=== PATIENT | female | born 1980 | race Caucasian/White ===

== ENCOUNTER 2018-03-22 08:10 | Emergency (ER) | payer OTHER ==
[~2018-03-22] VITALS: Ht 157.5 cm; Wt 114.0 kg
[2018-03-22 08:13] VITALS: TEMP 36.7; Ht 157.5 cm; Wt 114.0 kg
[2018-03-22] MEDS ORDERED: TRAM-10 PO (08:25)
[2018-03-22] MEDS ORDERED: HYDROCODONE/ACETAMIN 5/325MG TAB PO ONE (09:00)
[2018-03-22] MEDS ORDERED: HYDR-5688 PO (09:02)
[2018-03-22] MEDS ORDERED: PRED20TA PO (09:02)
[2018-03-22 09:14] VITALS: BP 136/90; PULSE 75; O2SAT 98
--- NOTE | 2018-03-22 17:07 | EMERGENCY ROOM VISIT NOTE ---
History First contact with patient: 08:20 Chief Complaint: SHOULDER PAIN Stated Complaint: LEFT SHOULDER PAIN AND SWELLING History of Present Illness The patient is a 37 year old white [place] female who presents to the Emergency Room with complaints of left shoulder pain that has been ongoing for almost a week. Patient denies any specific trauma. She does care for her 3-year-old cerebral palsy child. She states the child weighs about 30 pounds. She does carry the child a lot. She notes left shoulder pain that has been getting worse. She was seen by her chiropractor and was told that her shoulder was " out of place." She states it was adjusted and "put back in." The pain recurred. She was seen again and had shoulder massage. She states it helped for a few hours but the pain returned. She was seen at [facility] last night and was told she needed an MRI. They were unable to perform it last night. She reports here to obtain an MRI. Pain radiates from the elbow to the neck. Worst pain is at the shoulder. She notes pain both anterior and posterior. She has lost motion of the shoulder and elbow secondary to the pain. Denies any numbness or tingling. Right-hand dominant. Her accompanies her today. She has tried Tylenol and ibuprofen without improvement. She was prescribed Ultram last night but states it did not help the pain. She did get an injection of an unknown medication last night that did help for a few hours. No prior history of shoulder injury. She does have a sling but states it does not help. Review of Systems REVIEW OF SYSTEM: HEENT: No dizziness, visual problems, hearing loss, or tinnitus. There is no difficulty swallowing and no oral lesions are present. LYMPH: No adenopathy. PULMONARY: No cough, shortness of breath, sputum production or hemoptysis. CARDIOVASCULAR: No chest pain, palpitations, shortness of breath or peripheral edema. GASTROINTESTINAL: No diarrhea, constipation, nausea, vomiting, or abdominal pain. GENITOURINARY: No dysuria, frequency, urgency or nocturia. NEUROLOGIC: No weakness, muscle tenderness, epilepsy or history of neurological problems. MUSCULOSKELETAL: No history of joint tenderness/swelling. No history of arthritis or arthralgias. SKIN: No rashes or lesions. PSYCHIATRIC: No history of depression or mental illness. ENDOCRINE: No history of diabetes, thyroid disorders, or abnormal hair growth. Past Medical/Surgical History Previous surgeries: None. Medical history: Unremarkable. Family History Her child has cerebral palsy. Social History Smoking Status: Never Smoker Smokeless Tobacco Use: No Alcohol Use: none Drug Use: none Marital Status: Housing Status: lives with family Occupation Status: employed Current/Historical Medications Scheduled Prednisone (Prednisone), 0 PO DAILY Scheduled PRN Hydrocodone/Acetaminophen 5MG/325MG (Horatio 5MG/325MG), 1 TABLET PO Q6 PRN for Pain Tramadol (Ultram), 50 MG PO Q8H PRN for Pain Allergies Coded Allergies: No Known Allergies (Unverified , 03/22/18) Physical Exam Vital Signs Date Time Temp Pulse Resp B/P (MAP) Pulse Ox O2 Delivery O2 Flow Rate FiO2 03/22/18 09:14 75 18 136/90 98 Room Air 03/22/18 08:13 36.7 74 16 160/96 97 Room Air Physical Exam General: Well-developed, well-nourished, young white female, who looks older than her stated age. Sitting on a chair. Obvious discomfort. No acute distress. Alert and oriented. Skin: Warm and dry with good turgor. No rashes or lesions. No ecchymosis or erythema. The patient is not diaphoretic. No abrasions. Musculoskeletal: Left shoulder evaluation reveals no obvious asymmetry or deformity. There is no fullness in the anterior chest to suggest dislocation. She has focal discomfort with palpation over the proximal biceps tendon, subacromial space, and posterior rotator cuff musculature. No pain with palpation over the wrist, forearm, elbow, bicep muscle belly, or tricep muscle belly. Mild discomfort with palpation over her trapezius. No pain over the cervical spine. Intact motor function to the fingers and wrist. She does have full elbow extension as well as flexion to about 110. Passively I can get her to around 120. Very limited shoulder motion secondary to pain. Pendulum exercises do not improve her motion much. Internal rotation with her arm across her abdomen. External rotation just to neutral. Very limited forward flexion and extension secondary to shoulder pain. Good range of motion of her neck. Neurologic: Gross sensation is intact across all aspects of the left arm by soft touch. Peripheral pulses are 2+. Sensory and motor function of the radial , median, and ulnar nerves are clearly intact. Peripheral pulses are 2+. Medical Decision & Procedures Medications Administered Medications (Trade) Dose Ordered Sig/Huber Route Start Time Stop Time Status Last Admin Dose Admin Prednisone (PredniSONE TAB) 60 mg NOW STAT PO 03/22/18 08:54 03/22/18 08:56 DC 03/22/18 09:12 60 MG Acetaminophen/ Hydrocodone Bitart (Horatio 5/325 Tab) 1 tab ONE ONCE PO 03/22/18 09:00 03/22/18 09:01 DC 03/22/18 09:13 1 TAB Prednisone 60 mg p.o., Horatio 5 mg p.o. ED Course Patient and her were educated regarding today's findings. Conservative care measures were discussed. She already had x-rays at [facility] last night. Unfortunately she did not bring them along with her. They are reportedly normal. I did spend considerable time with him explaining shoulder anatomy and what was causing her pain. Possibility of rotator cuff injury and biceps tendon injury were discussed at length. They are here for an MRI. They will be paying out of pocket. Because of the request to keep costs down, I did provide him with an outpatient prescription for MRI arthrogram of her shoulder. She will likely need physical therapy. She may require surgical intervention if a tear of the biceps or rotator cuff is noted. I did request that she avoid seeing the chiropractor for her shoulder until imaging is completed. The OTC medications and tramadol are not working. Prescription was provided for a small amount of Horatio 5 mg to be used every 6 hours as needed for severe pain. Sedation, fall risk, and constipation risks were discussed. She was also given a dose of 60 mg of prednisone. Additional prescription for 60 mg 1 day, 40 mg 2 days, and 20 mg 2 days was provided. Continue the pendulum exercises for range of motion. Follow-up with her PCP. She was shown how to use her sling and should use this for support. Continue to ice the shoulder frequently. Sleep in an upright position if that is more comfortable. Avoid any heavy lifting, including her child. Medical Decision Possibility of cervical radiculopathy, rotator cuff strain, rotator cuff tear, biceps tendon tear, labral tear, shoulder impingement, shoulder dislocation, fracture, and pectoral strain were considered among others. [place] Drug Monitoring Program Search Results: no issues identified Impression Primary Impression: Left shoulder pain Departure Information Dispostion Home / Self-Care Condition GOOD Prescriptions Hydrocodone/Acetaminophen 5MG/325MG (Horatio 5MG/325MG) Tab 1 TABLET PO Q6 Y for Pain, #12 TAB For Initial Treatment Prov: Bhupendra Becker,P.A. 03/22/18 Prednisone (Prednisone) 20 Mg Tab 0 PO DAILY, #9 TAB 3 DAILY FOR 1 DAYS, THEN 2 DAILY FOR 2 DAYS, THEN 1 DAILY FOR 2 DAYS. Prov: Bhupendra Becker,P.A. 03/22/18 Forms HOME CARE DOCUMENTATION FORM, SPECIAL NARCOTICS INSTRUCTIONS, IMPORTANT VISIT INFORMATION Patient Instructions My [facility] Additional Instructions Prednisone daily-take 3 tablets on Friday, 2 tablets on Friday and Friday, and 1 tablet on and Friday Horatio 1 tablet every 6 hours as needed for severe pain-no driving Use the sling as needed Apply ice to the shoulder frequently to improve pain Start the pendulum exercises shown to you in the ER Follow-up with your PCP Call [phone] MRI to arrange imaging Problem Qualifiers Primary Impression: Left shoulder pain Chronicity: acute Qualified Codes: M25.512 - Pain in left shoulder
== END 2018-03-22 09:23 | disposition home or self-care (01) ==
LOC: C.EDB 08:12
DX: M25.512 Pain in left shoulder (principal)